=== PATIENT | female | born 1985 | race Two or more races ===

== ENCOUNTER 2021-02-03 16:25 | Emergency (ER) | payer OTHER, SELFPAY ==
--- NOTE | 2021-02-03 16:44 | EDM.PDOC ---
ED HPI GENERAL MEDICAL PROBLEM - General Chief Complaint: Chest Pain Stated Complaint: [facility] Time Seen by Provider: 02/03/21 16:36 Source of Information: Reports: Patient, EMS, EMS Notes Reviewed History Limitations: Reports: No Limitations - History of Present Illness INITIAL COMMENTS - FREE TEXT/NARRATIVE: Patient with a history of what sounds like CHF and a intracardiac thrombus on Coumadin presents with sharp stabbing left-sided chest pain with some tingling into her left arm and shoulder. Associated with some lightheadedness and dizziness she has taken nitro for it in the past. After second dose she was not getting any better and therefore 911 was called for better evaluation. 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 She then had been seen and evaluated in June more or less around June for shortness of breath and breathing problems and was diagnosed with a intracardiac thrombus. She been on Coumadin since then. Currently patient is denies any fevers or chills no sweats some nausea associated with the pain some lightheadedness no fainting spell no palpitations denies any runny nose or sore throat no major coughing or shortness of breath no pain with breathing mild nausea but no vomiting or diarrhea no burning pain or blood in the urine denies Covid no lower extremity swelling - Related Data Allergies Allergy/AdvReac Type Severity Reaction Status Date / Time No Known Allergies Allergy Verified 02/03/21 16:41 Home Meds: Home Meds Doxycycline [Doxycycline Hyclate] 100 mg PO BID 02/03/21 [History] Furosemide 40 mg PO BID 02/03/21 [History] Ivabradine HCl [Corlanor] 5 mg PO BID 02/03/21 [History] Mirtazapine 15 mg PO BEDTIME 02/03/21 [History] Warfarin [Coumadin] 5 mg PO MOWEFR 02/03/21 [History] Warfarin [Coumadin] 7.5 mg PO SUTHSA 02/03/21 [History] carvediloL [Carvedilol] 12.5 mg PO BID 02/03/21 [History] lisinopriL [Lisinopril] 10 mg PO DAILY 02/03/21 [History] Past Medical History Cardiovascular History: Reports: Heart Failure, [place], Other (See Below) Other Cardiovascular History: "thrombus in heart" - Infectious Disease History Infectious Disease History: Reports: MRSA - Past Surgical History Musculoskeletal Surgical History: Reports: Knee Replacement ED ROS GENERAL - Review of Systems Review Of Systems: See Below Constitutional: Denies: Fever, Chills, Diaphoresis HEENT: Denies: Rhinitis, Vision Change Respiratory: Denies: Shortness of Breath, Pleuritic Chest Pain, Cough Cardiovascular: Reports: Chest Pain, Lightheadedness. Denies: Dyspnea on Exertion, Edema, Palpitations, Syncope GI/Abdominal: Reports: Nausea. Denies: Abdominal Pain, Constipation, Diarrhea, Vomiting : Reports: Frequency. Denies: Dysuria Musculoskeletal: Denies: Neck Pain, Back Pain Neurological: Reports: Paresthesia, Tingling. Denies: Dizziness, Headache, Trouble Speaking, Weakness Psychiatric: Reports: Anxiety Hematologic/Lymphatic: Denies: Easy Bleeding ED EXAM, GENERAL - Physical Exam Exam: See Below Exam Limited By: No Limitations General Appearance: Alert, WD/WN, No Apparent Distress Eye Exam: Bilateral Eye: EOMI, PERRL Throat/Mouth: Normal Oropharynx Head: Atraumatic Neck: Supple. No: Carotid Bruit Respiratory/Chest: No Respiratory Distress, Lungs Clear, Normal Breath Sounds, No Accessory Muscle Use, Chest Non-Tender Cardiovascular: Normal Peripheral Pulses, Regular Rate, Rhythm, No Edema Peripheral Pulses: 2+: Radial (L), Radial (R) GI/Abdominal: Normal Bowel Sounds, Soft, Non-Tender, No Distention Extremities: Normal Inspection Neurological: Alert, Oriented, CN II-XII Intact Psychiatric: Normal Affect Skin Exam: Warm #1 Interpretation EKG Date: 02/03/21 Time: 16:30 Rate (Beats/Min): 94 EKG Interpretation Comments: I reviewed EKG showing a rate of 94 sinus rhythm WI 180 QRS is 77 QT corrected 457 nonspecific T wave changes no acute ischemic changes otherwise are noted. Course - Vital Signs Text/Narrative:: Atypical chest pain with history of cardiac thrombus, CHF, no increasing work of breathing or shortness of breath doubt PE, seems like very atypical for acute coronary syndrome with no acute EKG changes although she does take nitro saving get old records otherwise seems unlikely PE especially on Coumadin, rule out acute coronary syndrome, check her INR to see how she might be doing with the thrombus she has no syncope vital signs otherwise are stable. Last Recorded V/S: Last Vital Signs Temp 97.1 F 02/03/21 16:35 Pulse 95 02/03/21 16:35 Resp 16 02/03/21 16:35 BP 127/89 02/03/21 16:35 Pulse Ox 95 02/03/21 16:35 - Orders/Labs/Meds Orders: Active Orders 24 hr Category Date Time Status Chest PE [Ang Chest] [CT] Stat Exams 02/03/21 17:45 Taken Sodium Chloride 0.9% [Normal Saline] 100 ml Med 02/03/21 18:15 Active IV ASDIRECTED Sodium Chloride 0.9% [Saline Flush] Med 02/03/21 18:08 Active 10 ml FLUSH ONETIME PRN Medication Orders Sodium Chloride (Normal Saline) 100 mls @ 75 mls/min IV ASDIRECTED IRINEO Last Admin: 02/03/21 18:38 Dose: 75 mls/min Documented by: [id number] Sodium Chloride (Sodium Chloride 0.9% 10 Ml Syringe) 10 ml FLUSH ONETIME PRN PRN Reason: Keep Vein Open Last Admin: 02/03/21 18:38 Dose: 10 ml Documented by: [id number] Labs: Laboratory Tests 02/03/21 02/03/21 02/03/21 Range/Units 17:05 17:05 17:05 WBC (3.98-10.04) K/mm3 RBC (3.98-5.22) M/mm3 Hgb (11.2-15.7) gm/dl Hct (34.1-44.9) % MCV (79.4-94.8) fl MCH (25.6-32.2) pg MCHC (32.2-35.5) g/dl RDW Std Deviation (36.4-46.3) fL Plt Count (182-369) K/mm3 MPV (9.4-12.3) fl Neut % (Auto) (34.0-71.1) % Lymph % (Auto) (19.3-51.7) % [place] % (Auto) (4.7-12.5) % Eos % (Auto) (0.7-5.8) Baso % (Auto) (0.1-1.2) % Neut # (Auto) (1.56-6.13) K/mm3 Lymph # (Auto) (1.18-3.74) K/mm3 [place] # (Auto) (0.24-0.36) K/mm3 Eos # (Auto) (0.04-0.36) K/mm3 Baso # (Auto) (0.01-0.08) K/mm3 PT 17.7 H (9.7-12.0) SECONDS INR 1.67 D-Dimer, Quantitative 1.23 H (0.19-0.50) mg/L Sodium 137 (136-145) mEq/L Potassium 3.7 (3.5-5.1) mEq/L Chloride 98 (98-107) mEq/L Carbon Dioxide 29 (21-32) mEq/L Anion Gap 13.7 (5-15) BUN 14 (7-18) mg/dL Creatinine 0.7 (0.55-1.02) mg/dL Est Cr Clr Drug Dosing TNP Estimated GFR (MDRD) > 60 (>60) mL/min BUN/Creatinine Ratio 20.0 H (14-18) Glucose 105 H (70-99) mg/dL Calcium 8.8 (8.5-10.1) mg/dL Total Bilirubin 0.3 (0.2-1.0) mg/dL AST 58 H (15-37) U/L ALT 87 H (14-59) U/L Alkaline Phosphatase 193 H (46-116) U/L Troponin I < 0.017 (0.00-0.056) ng/mL Total Protein 8.3 H (6.4-8.2) g/dl Albumin 3.6 (3.4-5.0) g/dl Globulin 4.7 gm/dL Albumin/Globulin Ratio 0.8 L (1-2) Lipase 157 (73-393) U/L Urine Opiates Screen (MMKQJD=871) Ur Buprenorphine Scrn (CUTOFF=10) Ur Oxycodone Screen (WHP5BZ=436) Urine Methadone Screen (MLZVYC=728) Ur Propoxyphene Screen (JMYNOU=494) Ur Barbiturates Screen (EGQXWD=022) Ur Tricyclics Screen (UDENRT=108) Ur Phencyclidine Scrn (CUTOFF=25) Ur Amphetamine Screen (TNKIUK=463) U Methamphetamines Scrn (LKYTNZ=133) U Benzodiazepines Scrn (ECCMJZ=864) U Cocaine Metab Screen (FVJBZC=315) U Marijuana (THC) Screen (CUTOFF=50) 02/03/21 02/03/21 Range/Units 17:06 17:27 WBC 6.39 (3.98-10.04) K/mm3 RBC 3.83 L (3.98-5.22) M/mm3 Hgb 11.9 (11.2-15.7) gm/dl Hct 36.1 (34.1-44.9) % MCV 94.3 (79.4-94.8) fl MCH 31.1 (25.6-32.2) pg MCHC 33.0 (32.2-35.5) g/dl RDW Std Deviation 45.0 (36.4-46.3) fL Plt Count 328 (182-369) K/mm3 MPV 9.0 L (9.4-12.3) fl Neut % (Auto) 61.9 (34.0-71.1) % Lymph % (Auto) 28.2 (19.3-51.7) % [place] % (Auto) 8.0 (4.7-12.5) % Eos % (Auto) 1.4 (0.7-5.8) Baso % (Auto) 0.3 (0.1-1.2) % Neut # (Auto) 3.96 (1.56-6.13) K/mm3 Lymph # (Auto) 1.80 (1.18-3.74) K/mm3 [place] # (Auto) 0.51 H (0.24-0.36) K/mm3 Eos # (Auto) 0.09 (0.04-0.36) K/mm3 Baso # (Auto) 0.02 (0.01-0.08) K/mm3 PT (9.7-12.0) SECONDS INR D-Dimer, Quantitative (0.19-0.50) mg/L Sodium (136-145) mEq/L Potassium (3.5-5.1) mEq/L Chloride (98-107) mEq/L Carbon Dioxide (21-32) mEq/L Anion Gap (5-15) BUN (7-18) mg/dL Creatinine (0.55-1.02) mg/dL Est Cr Clr Drug Dosing Estimated GFR (MDRD) (>60) mL/min BUN/Creatinine Ratio (14-18) Glucose (70-99) mg/dL Calcium (8.5-10.1) mg/dL Total Bilirubin (0.2-1.0) mg/dL AST (15-37) U/L ALT (14-59) U/L Alkaline Phosphatase (46-116) U/L Troponin I (0.00-0.056) ng/mL Total Protein (6.4-8.2) g/dl Albumin (3.4-5.0) g/dl Globulin gm/dL Albumin/Globulin Ratio (1-2) Lipase (73-393) U/L Urine Opiates Screen Negative (SUAMGO=700) Ur Buprenorphine Scrn Negative (CUTOFF=10) Ur Oxycodone Screen Negative (KAJ4FS=645) Urine Methadone Screen Negative (KNCNYY=838) Ur Propoxyphene Screen Negative (SMLWJX=310) Ur Barbiturates Screen Negative (ZSBCAH=047) Ur Tricyclics Screen Negative (XZGFWS=539) Ur Phencyclidine Scrn Negative (CUTOFF=25) Ur Amphetamine Screen Negative (RPEJCZ=839) U Methamphetamines Scrn Negative (HFSQGP=775) U Benzodiazepines Scrn Negative (CKQLHL=185) U Cocaine Metab Screen Negative (PCXHOU=181) U Marijuana (THC) Screen Negative (CUTOFF=50) White blood cell count 6.39 hemoglobin 9.9 hematocrit 36.1 platelet count 3 and 28,000 D-dimer was 1.2, troponin negative, creatinine stable with a normal creatinine clearance. Meds: Medications Generic Name Dose Route Start Last Admin Trade Name Freq PRN Reason Stop Dose Admin Sodium Chloride 100 mls @ 75 mls/min 02/03/21 18:15 02/03/21 18:38 Normal Saline IV 75 mls/min ASDIRECTED IRINEO Administration Sodium Chloride 10 ml 02/03/21 18:08 02/03/21 18:38 Sodium Chloride 0.9% 10 Ml Syringe FLUSH 10 ml ONETIME PRN Administration Keep Vein Open Discontinued Medications Generic Name Dose Route Start Last Admin Trade Name Freq PRN Reason Stop Dose Admin Iopamidol 100 ml 02/03/21 18:06 02/03/21 18:38 Iopamidol 755 Mg/Ml 100 Ml Bottle IVPUSH 02/03/21 18:07 100 ml ONETIME ONE Administration Ondansetron HCl 4 mg 02/03/21 17:41 02/03/21 17:51 Ondansetron 4 Mg/2 Ml Sdv IVPUSH 02/03/21 17:42 4 mg ONETIME ONE Administration - Radiology Interpretation Free Text/Narrative:: Portable chest x-ray shows heart size and mediastinum normal small nodule density seen left upper chest most like representing minimal nodular pleural thickening lungs otherwise clear no acute osseous abnormality noted no other acute findings noted CT chest angiogram shows a normal pulmonary arteries no pulmonary emboli aortic aorta looks normal no dissection linear atelectasis versus scar on the right lung base no consolidation no pneumothorax no cardiomegaly or pericardial effusion small to moderate size hiatal hernia left breast ovoid calcified mass measuring 3 x 1.4 cm likely fibroadenoma recommend a breast ultrasound at some point in the future to rule out cancer.. CT Results Date: 02/03/21 CT Results Time: 18:25 - Re-Assessments/Exams Free Text/Narrative Re-Assessment/Exam: 02/03/21 19:33 Patient is stable no more chest pain or symptoms vital signs been stable. We will plan discharge home reviewed the CT scan report and showing the need for an ultrasound on the left breast to rule out malignancy, increase her Coumadin 10 mg today and tomorrow and will need recheck INR next week. Follow-up and return cautions otherwise given. Departure - Departure Time of Disposition: 19:40 Disposition: Home, Self-Care 01 Condition: Good Clinical Impression: Atypical chest pain, Subtherapeutic anticoagulation Instructions: Nonspecific Chest Pain, Adult Referrals: PCP,None [Primary Care Provider] - Forms: ED Department Discharge Additional Instructions: We have given you 10 mg of Coumadin tonight you will not need to take any dose of your Coumadin at the [facility] today. We need you to take 10 mg of Coumadin tomorrow and then get back on your regular scheduled dosage per medical charting. You will need to get your INR rechecked sometime next week. Recommend follow-up with cardiology and repeat echocardiogram. return if any increasing chest pain especially associated with shortness of breath lightheadedness dizziness weakness or fainting spell Sepsis Event Note (ED) - Evaluation Sepsis Screening Result: No Definite Risk - Focused Exam Vital Signs: Vital Signs Temp Pulse Resp BP Pulse Ox 02/03/21 16:35 97.1 F 95 16 127/89 95 - My Orders Last 24 Hours: My Active Orders 02/03/21 17:45 Chest PE [Ang Chest] [CT] Stat 02/03/21 18:08 Sodium Chloride 0.9% [Saline Flush] 10 ml FLUSH ONETIME PRN 02/03/21 18:15 Sodium Chloride 0.9% [Normal Saline] 100 ml IV ASDIRECTED - Assessment/Plan Last 24 Hours: My Active Orders 02/03/21 17:45 Chest PE [Ang Chest] [CT] Stat 02/03/21 18:08 Sodium Chloride 0.9% [Saline Flush] 10 ml FLUSH ONETIME PRN 02/03/21 18:15 Sodium Chloride 0.9% [Normal Saline] 100 ml IV ASDIRECTED
--- NOTE | 2021-02-03 17:34 | CR ---
Chest: Portable view of the chest was obtained. Comparison: No prior chest x-ray is available, prior chest Cardiolite study of 06/03/19 is available. Heart size and mediastinum are normal. Small nodular density is seen within the left upper chest most likely representing minimal nodular pleural thickening. Lungs otherwise are clear. No acute osseous abnormality is appreciated. Impression: 1. Small nodular density within the left upper chest which is most likely incidental. 2. Nothing acute is otherwise seen. Diagnostic code #2
[2021-02-03] MEDS ORDERED: Ondansetron 4 MG/2 ML SDV IVPUSH ONE (17:41)
[2021-02-03] MEDS ORDERED: Iopamidol 755 Mg/ML 100 ML Bottle IVPUSH ONE (18:06)
[2021-02-03] MEDS ORDERED: Sodium Chloride 0.9% 10 ML Syringe FLUSH PRN (18:08)
[2021-02-03] MEDS ORDERED: Sodium Chloride 0.9% 100 ML IV SCH (18:15)
[2021-02-03] MEDS ORDERED: Warfarin 10 MG Tab PO ONE (19:36)
[2021-02-03] MEDS ORDERED: Warfarin 5 MG Tab ONE (19:41)
[2021-02-03] MEDS ORDERED: Warfarin 5 MG Tab PO ONE (19:43)
--- NOTE | 2021-02-04 08:22 | CT ---
CT chest Technique: Multiple axial sections were obtained through the chest. Intravenous contrast was utilized. Study was performed as a pulmonary angiogram protocol. Comparison: Prior chest x-ray of 02/03/21. Findings: Oval nodular density is noted within the left breast measuring approximately 3.1 cm. This finding shows areas of calcification and most likely represents a fibroadenoma. Small hiatal hernia is noted. Visualized upper abdominal structures show no acute abnormality. No acute pericardial fluid is seen. Thoracic aorta shows no aneurysm. Pulmonary arteries show no filling defects or pulmonary embolism. Mediastinum and hilar regions show no adenopathy or mass. Lung window settings were reviewed. No left upper lung nodule is noted which was seen on recent chest x-ray. Minimal atelectasis or scarring is seen within the right lung base. Lungs otherwise are clear with no acute parenchymal change. Bone window settings were reviewed. No acute osseous abnormality is appreciated. Impression: 1. 3.1 cm nodule within the left breast showing calcifications. This is most likely due to a fibroadenoma. 2. No findings of pulmonary embolism are seen. 3. Small hiatal hernia and minimal right basilar atelectasis or scarring. Nothing acute is appreciated. Diagnostic code #2 I agree with preliminary report from [facility] finalized on 02/03/21, 8:25 PM CDT, code 1
== END 2021-02-03 19:50 | disposition home or self-care (01) ==
LOC: JD.ED 16:25
DX: R07.89 Other chest pain (principal); R79.1 Abnormal coagulation profile; I50.9 Heart failure, unspecified; I25.2 Old myocardial infarction; Z79.899 Other long term (current) drug therapy; Z79.01 Long term (current) use of anticoagulants
CPT/HCPCS: 36415; 71045; 71275; 80053; 80306; 83690; 84484; 85025; 85379; 85610; 96374; 99285; A9270; J2405; Q9967; 93010; 99284